=== PATIENT | female | born 1935 | race Caucasian/White ===

== ENCOUNTER 2017-09-04 10:16 | Outpatient (RCR) | payer MEDICARE, BC | END 2017-09-19 | LOC: M PT 10:16 | DX: Z51.89 Encounter for other specified aftercare (principal); I89.0 Lymphedema, not elsewhere classified | CPT/HCPCS: 97163 ==

== ENCOUNTER 2017-10-03 14:22 | Outpatient (RCR) | payer MEDICARE, BC | END 2017-10-20 | LOC: M PT 14:22 | DX: Z51.89 Encounter for other specified aftercare (principal); I89.0 Lymphedema, not elsewhere classified | CPT/HCPCS: 97140 ==

== ENCOUNTER 2018-03-26 12:18 | Outpatient (RCR) | payer MEDICARE, BC | END 2018-04-19 | LOC: M PT 12:18 | PROVIDERS: ATTEND Family Medicine | DX: I89.0 Lymphedema, not elsewhere classified (principal) ==